=== PATIENT | female | born 1960 | race Hispanic/Latino ===

== ENCOUNTER 2017-07-22 09:38 | Emergency (ER) | payer OTHER ==
[~2017-07-22] VITALS: Ht 152.4 cm; Wt 73.5 kg
[~2017-07-22 09:38] MED LIST: BENTYL10 M1 PO; CITALOPRAM HBR20 MG PO; CRESTOR5 M1 PO; MELOXICAM7.5 M1 PO; METFORMIN HCL500 M3 PO; MIRTAZAPINE7.5 M1 PO; PANTOPRAZOLE SO40 M1 PO; TRADJENTA5 M1 PO; ZOFRAN ODT4 M1 SL
--- NOTE | 2017-07-22 11:23 | ED GI/GU/ABDOMINAL COMPLAINT ---
History of Present Illness General Chief Complaint: General Adult Stated Complaint: ?HEMMOROID Source: patient Exam Limitations: no limitations Vital Signs & Intake/Output Vital Signs & Intake/Output Vital Signs Date Time Temp Pulse Resp B/P B/P Pulse O2 O2 Flow FiO2 Mean Ox Delivery Rate 07/22 1214 96.1 82 18 138/84 84 Room Air 07/22 1125 Room Air 07/22 0952 96.0 86 15 139/101 98 Room Air Room Air Allergies Coded Allergies: No Known Allergies (07/22/17) Reconcile Medications Citalopram Hydrobromide (Citalopram HBr) 20 MG TABLET 1 TAB PO DAILY MENTAL HEALTH (Reported) Dicyclomine Hydrochloride (Bentyl) 10 MG CAPSULE 1 CAP PO TID PRN ABDOMINAL SPASMS Linagliptin (Tradjenta) 5 MG TABLET 1 TAB PO DAILY DIABETES (Reported) Meloxicam 7.5 MG TABLET 1 TAB PO BID PAIN (Reported) Metformin HCl 500 MG TABLET 1 TAB PO BID DIABETES (Reported) Mirtazapine 7.5 MG TABLET 1 TAB PO QPM SLEEP (Reported) Ondansetron (Zofran Odt) 4 MG TAB.RAPDIS 1 TAB SL TID PRN NAUSEA Pantoprazole Sodium 40 MG TABLET.DR 1 TAB PO DAILY ACID REFLUX (Reported) Rosuvastatin Calcium (Crestor) 5 MG TABLET 1 TAB PO DAILY CHOLESTEROL ( Reported) Triage Note: PT TO ED FOR C/C OF HEMMORHOIDS. REPORTS SMALL AMOUNT OF +BRB WHEN HAVING BOWEL MOVEMENT. DENIES CLOTS. Triage Nurses Notes Reviewed? yes ? N Is pt currently ? No Duration: constant Timing: recent history Quality/Severity: moderate Severity Numbers: 5 Radiation: no radiation Activities at Onset: none HPI: Patient is a 57-year-old female with a past medical history of type 2 diabetes insulin-dependent who presents to emergency room with concerns of a 2 week history of external hemorrhoids patient with initially saw primary care doctor in which she was diagnosed Patient states that she's had persistent external rectal pain and blood noted upon bowel movements after wiping on tissue. No blood noted in the stool no black in stool, denies any fever chills abdominal pain nausea or vomiting. Patient states that palpation and sitting makes worse (Clair LEE,Josh) Past History Travel History Traveled to [place] past 21 day No Medical History Any Pertinent Medical History? see below for history Endocrine: diabetes Surgical History Surgical History: non-contributory Psychosocial History What is your primary language Lithuanian Tobacco Use: Never used ETOH Use: denies use Illicit Drug Use: denies illicit drug use Family History Hx Contributory? No (Josh Cordova) Review of Systems Review of Systems Constitutional: Reports: no symptoms. EENTM: Reports: no symptoms. Respiratory: Reports: no symptoms. Cardiovascular: Reports: no symptoms. GI: Reports: see HPI. Genitourinary: Reports: see HPI. Musculoskeletal: Reports: no symptoms. Skin: Reports: no symptoms. Neurological/Psychological: Reports: no symptoms. Hematologic/Endocrine: Reports: no symptoms. Immunologic/Allergic: Reports: no symptoms. All Other Systems: Reviewed and Negative (Josh Cordova) Physical Exam Physical Exam General Appearance: no apparent distress, alert, comfortable Head: atraumatic Eyes: Bilateral: normal appearance. Ears, Nose, Throat, Mouth: moist mucous membrane Neck: normal inspection, supple Respiratory: no respiratory distress Cardiovascular: regular rate/rhythm Gastrointestinal: normal bowel sounds, soft, non-tender Rectal: NO ACTIVE BLEEDING NOTED X 3 EXTERNAL NONTHROMBOSED SOFT MILD HEMORRHOIDS NO SURROUNDING ERYTHEMA OR WARMTH, OR FLUCTUANCE OR INDURATION OF THE PERIRECTAL REGION Extremities: normal range of motion Neurologic/Psych: no motor/sensory deficits, awake, alert, oriented x 3 Skin: intact Core Measures ACS in differential dx? No Sepsis Present: No Sepsis Focused Exam Completed? No (Josh Cordova) Progress Differential Diagnosis: colon cancer, ischemic bowel, inflamm bowel dis Plan of Care: Differential diagnosis include external, internal hemorrhoid GI bleed, cancer, perirectal or rectal abscess On exam patient has nonthrombosed hemorrhoids no concerns of perirectal or rectal abscess on exam. Patient was strongly advised to follow up with disposition plan and she will comply patient has nontender abdomen Initial ED EKG: none (Josh Cordova) Departure Departure Disposition: HOME OR SELF CARE Condition: Stable Clinical Impression Primary Impression: External hemorrhoid Referrals: Alexi Figueroa DO,Peggy Beauchamp APRN (PCP/Family) a Additional Instructions: As discussed continue [id number] Preparation H cream begin the prescription of lidocaine cream, prescribed since waiting at [place] [facility], today please call colorectal surgeon Dr. Truong for further evaluation treatment , symptoms worsen return to emergency room. Departure Forms: Customer Survey General Discharge Information (Josh Cordova) PA/PACKER [employer] Co-Sign Statement Statement: ED Attending supervision documentation- [] I saw and evaluated the patient. I have also reviewed all the pertinent lab results and diagnostic results. I agree with the findings and the plan of care as documented in the PA's/PACKER [employer]'s documentation. [X] I have reviewed the ED Record and agree with the PA's/PACKER [employer]'s documentation. [] Additions or exceptions (if any) to the PAs/PACKER [employer]'s note and plan are summarized below: [] (Del Andrade DO
[2017-07-22 12:14] VITALS: BP 138/84
== END 2017-07-22 12:44 ==
LOC: ERH 09:38
DX: K64.4 Residual hemorrhoidal skin tags (principal)